=== PATIENT | female | born 1985 | race Caucasian/White ===

== ENCOUNTER 2017-08-19 19:38 | Emergency (ER) | payer OTHER ==
[~2017-08-19] VITALS: Ht 160 cm; Wt 118.4 kg
[~2017-08-19 19:38] MED LIST: BIRTH CONTROL PILL PO; ENDOCET 5-3251 EACH PO; MOTRIN800 MG PO; NAPROXEN500 MG PO; ZOFRAN ODT4 MG PO
[2017-08-19] MEDS ORDERED: PERCOCET 5/31 TABLET PO (21:57)
[2017-08-19 22:13] VITALS: BP 156/109
== END 2017-08-19 22:14 | disposition home or self-care (01) ==
LOC: EME 19:38
DX: S42.211A Unspecified displaced fracture of surgical neck of right humerus, initial encounter for closed fracture (principal); W19.XXXA Unspecified fall, initial encounter; Y92.331 Roller skating rink as the place of occurrence of the external cause; Z79.3 Long term (current) use of hormonal contraceptives
CPT/HCPCS: 73030; 99281; 99284